=== PATIENT | female | born 1980 | race Caucasian/White ===

== ENCOUNTER 2020-04-03 18:33 | Emergency (ER) | payer SELFPAY | END 2020-04-03 19:56 | disposition left against medical advice (07) | PROVIDERS: Emergency Provider Emergency Medicine | DX: R10.9 Unspecified abdominal pain (principal); R51.9 Headache, unspecified ==

== ENCOUNTER 2023-06-09 08:34 | Outpatient (REF) | payer OTHER, SELFPAY ==
--- NOTE | ~2023-06-09 | FL_ITS ---
EXAMINATION: XR FLUOROSCOPY UPPER GI WITH AIR CLINICAL INFORMATION: Burning, reflux COMPARISON: None TECHNIQUE: Fluoroscopic air contrast upper GI examination was performed utilizing standard techniques with thin and thick barium and effervescent granules. Numerous spot images were obtained. FINDINGS: Dual and single contrast images of the esophagus demonstrate normal caliber, contour, and mucosal pattern. No evidence of stricture, mass, or ulcerations identified. There is to and fro motion of the barium column with mildly disorganized peristalsis in the mid and distal esophagus. There is mild to moderate narrowing of the GE junction they may represent achalasia or a benign stricture. A small type I hiatal hernia is present. No significant gastroesophageal reflux was seen during the course of the examination and on reflux views. Dual contrast and single contrast images of the stomach demonstrated a normal contour. Evaluation of the gastric mucosa is limited due to poor coating of the barium. No obvious mass is identified. Contrast freely passed into the gastric antrum and duodenal bulb without delay. Single and air-contrast images of the duodenal bulb demonstrate no abnormality. The duodenal sweep has a normal appearance, course, and mucosal fold appearance. The imaged proximal jejunum has a normal fold pattern and caliber. FLUOROSCOPY TIME: 4 minutes 58 seconds Number of Spot Images: 14 Number of Cine: 10 DOSE AREA PRODUCT: 4152 uGy-m2 (microgray-meter squared) FL/FL upper GI series IMPRESSION: 1. Mildly disorganized esophageal peristalsis 2. Mild to moderate narrowing of the GE junction that may represent achalasia or a benign stricture. 3. Small type I hiatal hernia 4. Evaluation of the gastric mucosa is limited due to poor coating of the barium. This procedure was performed by Tra Whaley PA-C, and supervised by Dr. Schroeder
== END 2023-06-09 08:35 | disposition home or self-care (01) ==
LOC: HO.XRAY 08:34
PROVIDERS: Visit Provider Physician Assistant
DX: R13.10 Dysphagia, unspecified (principal); K21.9 Gastro-esophageal reflux disease without esophagitis
CPT/HCPCS: 74240

== ENCOUNTER → 2023-06-09 08:36 | Outpatient (BNV) | payer OTHER, SELFPAY | PROVIDERS: Visit Provider Physician Assistant Surgical | DX: K21.9 Gastro-esophageal reflux disease without esophagitis (principal) | CPT/HCPCS: 74246 ==

== ENCOUNTER 2023-07-08 13:51 | Outpatient (AMB) | payer OTHER, SELFPAY ==
--- NOTE | 2023-07-08 14:03 | A.OFFVIS_ITS ---
Intake Vital Signs 07/08/23 14:04 Height 5 ft 6 in Weight 388 lb 0.217 oz BMI 62.6 BP 135/82 Blood Pressure Location Lt brachial Position Sitting Pulse 94 Intake Visit Reasons: possible dysphagia Intake Note: Jonelle presents in the office as a new patient for dysphagia. CC: Issues swallowing, pains in the chest. She has constipation at times but denies diarrhea. Traffic Engineering Director Required: No Allergies carbamazepine [From TEGRETOL] Allergy (Unknown, Unverified 07/08/23 14:06) UNKNOWN-CHILDHOOD ALLERGIC REACTION carbamazepine Allergy (Unknown, Uncoded 07/08/23 14:06) Unknown Medication List - Last Reconciled 07/08/23 by Maribel Christine PA-C clonidine HCl mg PO diclofenac sodium 3% 1 appl topical BID doxepin mg PO escitalopram oxalate 20 mg PO DAILY risperidone mg PO semaglutide 0.25 mg subcut QWEEK HPI HPI Comments History of Present Illness Details A 42 y/o female referred after recent upper GI series showing possible stricture. She presents with dysphagia for the past few months. 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- [employer] Review of Systems Const All systems reviewed & are unremarkable except as noted in HPI and below ENT Reports dysphagia and Denies dizziness Card Denies chest pain and Denies dyspnea Resp Denies dyspnea GI Denies abdominal pain, Denies change in bowel habits, Reports dysphagia, Reports heartburn, Denies nausea and Denies vomiting Neuro Denies dizziness Physical Exam Vital Signs: Last Vital Signs Pulse 94 07/08/23 14:04 BP 135/82 07/08/23 14:04 BMI result Body Mass Index 62.6 Const General: cooperative and no acute distress Orientation/consciousness: patient oriented x3 Limitations: no limitations Eyes Sclerae: sclerae normal Resp Effort & Inspection: normal respiratory effort and able to speak in complete sentences Auscultation: clear to auscultation bilaterally, no rales, no rhonchi and no wheezes Cardio Rate: regular rate Rhythm: regular rhythm Heart sounds: S1 normal heart sound present and S2 normal heart sound present GI Inspection: Yes normal to inspection Palpation (GI): Soft to palpation and nontender Auscultation: normal bowel sounds Neuro General: patient oriented x3 Extrem General: Yes full ROM Psych Appearance: well kempt Mental Status: mental status grossly normal Speech and movement: Normal speech and movement present and Clear speech present Affect: normal affect Attitude: cooperative Thought process: Normal thought process present Thought content: Normal thought content present Insight: Good insight present (Psych) Judgement: Good judgement present (Psych) Results Reviewed Results Reviewed: FL/FL upper GI series IMPRESSION: 1. Mildly disorganized esophageal peristalsis 2. Mild to moderate narrowing of the GE junction that may represent achalasia or a benign stricture. 3. Small type I hiatal hernia 4. Evaluation of the gastric mucosa is limited due to poor coating of the barium. Assessment & Plan Assessment & Plan (1) Dysphagia: Comment: Pleasant 42-year-old female- past few mos- UGI- poss stricture Code(s): R13.10 - Dysphagia, unspecified Plan: EGD possible dilation (2) Acid reflux: Comment: PPI, reflux precautions Code(s): K21.9 - Gastro-esophageal reflux disease without esophagitis Plan: pantoprazole Plan EGD w/ poss dil If started OZEMPIC - must stop 1 wk < pantoprazole 20 reflux precautions Medications: New docusate sodium (Colace) 200 mg (2 x 100 mg) PO BEDTIME 60 caps 5RF pantoprazole 20 mg PO QAM 30 days 30 tabs 6RF polyethylene glycol 3350 (Miralax) 17 grams PO DAILY 510 grams 6RF Patient Instructions: EGD w/ poss dil-discussed procedure, rare risks need for escort If started OZEMPIC - must stop 1 wk < discussed with patient, no major barriers to understanding were identified pantoprazole 20 reflux precautions Avoid culprits, caffeine, nicotine, chocolate, peppermint, alcohol remain upright 2-3 hours after eating especially evening meal Encouraged to establish with PCP Encouraged to call with questions or concerns Coding Level of Care Code New Pt Level 3 (23370) Diagnoses Dysphagia R13.10 Acid reflux K21.9 Time Spent (min) 30
[2023-07-08 14:04] VITALS: BP 135/82; PULSE 94; BMI 62.6
== END 2023-07-08 14:33 | disposition home or self-care (01) ==
PROVIDERS: Visit Provider Physician Assistant
DX: R13.10 Dysphagia, unspecified (principal); K21.9 Gastro-esophageal reflux disease without esophagitis
CPT/HCPCS: 99203

== ENCOUNTER → 2023-07-08 13:51 | Outpatient (BNVA) | payer OTHER, SELFPAY | PROVIDERS: Visit Provider Physician Assistant | DX: R13.10 Dysphagia, unspecified (principal); K21.9 Gastro-esophageal reflux disease without esophagitis | CPT/HCPCS: 99202 ==

== ENCOUNTER 2023-07-16 12:54 | Day surgery (SDC) | payer OTHER, SELFPAY ==
--- OUTSIDE RECORDS SUMMARY | 2023-07-16 12:57 | XMS_ITS | Continuity of Care Document ---
Author Organization [facility] ter Address [address] [place] [address]- Care Team Providers Care Computer Technology Instructor Name Role Phone Not on Staff, PCP Primary Care Physician Unavail able [place] [facility] [place] - 11/19/[address] [address]- Discharge Disposition: A-D/C Home Attending Physician: Hernan De Los Santos DO Admitting Physician: Hernan De Los Santos DO Referring Physician: Not on Staff, Referring MD Allergies, Adverse Reactions, Alerts Substance Reaction Severity Status Tegretol [D]Dizziness and giddiness Moderate A ctive Immunizations Given and Recorded Vaccine Date Status Refusal Reason tetanus/diphtheria/pertussis, acel(Tdap) 1 01/19/17 Given influenza virus vaccine, inactivated 2 01/19/17 [facility] influenza virus vaccine, inactivated 3 11/12/11 [facility] diphtheria-tetanus toxoids (DT) 4 02/22/07 Given 1Admin Note: Declined 2Admin Note: Declined 3Admin Note: given at [facility] 4Admin Note: Dog bite, - [facility] Medications cloNIDine 0.1 mg oral tablet 0.1 mg, 1, tablet, By Mouth, Daily at bedtime, # 30 tablet, Refills 0, Tot. Refills 0, Maintenance,01/19/17 15:22:43, Do Not Route Start Date: 01/19/17 Stop Date: 02/18/17 Status: Ordered SEROquel 100 mg oral tablet 150 mg, 1.5, tablet, By Mouth, Daily at bedtime, # 45 tablet, Refills 0, Tot. Refills 0, Maintenance, 01/19/17 15:21:50, Do Not Route Start Date: 01/19/17 Stop Date: 02/18/17 Status: Ordered Vivitrol 380 mg intramuscular injection, extended release = 380 mg, Intramuscular, Every 28 days, # 1 each, 0 Refills, Maintenance, 01/19/17 15:23:14 Start Date: 01/19/17 Stop Date: 02/16/17 Status: Ordered Problem List Condition Effective Dates Status Health Status Inform ant Chronic bipolar disorder(Confirmed) 06/29/12 Active Dyspepsia(Confirmed) Active H/O: substance abuse(Confirmed) 1 Active History of seizure disorder( Confirmed) 2 Active Obesity NOS(Confirmed) Active 1past hx of snorting heroin, 2no seizure activity in over 20 years per pt Results Radiology Reports * Exam Date Time Procedure Performing Provider Status 11/18/20 10:38 PM Chest 2 Views Frontal and Lat Shital Barroso; Auth (Verified) Notes: (Chest 2 Views Frontal and Lat) Reason For Exam: Chest Pain;Other: RESULT: Chest 2 Views Frontal and Lat Chest 2 Views Frontal and Lat Hx of Present Illness: Pt sts she got up to get up from the couch to get something for her son to drink and suddenly felt very dizzy. The next thing she remembers is waking up to her son standing over her. He sts she was screaming. Previous episodes in childhood.; Reason: Other:; Chest Pain; Clinical Question(s): Other: COMPARISON: 04/27/2004. FINDINGS: LINES AND TUBES: None. LUNGS AND PLEURA: Clear lungs. A nodular density projecting over the right lower lung field on AP view corresponds toa prominent costochondral calcification seen on the lateral view. Normal pulmonary vascularity. No pleural effusion. No pneumothorax. HEART, MEDIASTINUM AND PASTORA: Heart is normal in size. Normal upper mediastinal and hilar contour. BONES AND SOFT TISSUES: No acute abnormality. IMPRESSION: No acute abnormality. WSN: [id number] Ordering Physician: Kal Ochoa Dictated By: James Goldman MD Dictated Date/Time: 11/18/20 10:42 p Reviewed By: James Goldman MD Signed By: James Goldman MD Signed Date/Time: 11/18/20 10:42 pm Transcribed By: TODD Transcribed Date/Time: 11/18/20 10:41 pm Vital Signs Most recent to oldest [Reference Range]: 1 2 3 Oxygen Saturation [94-100 %] 100 % (11/19/20 5:29 PM) 100 % (11/19/20 3:51 PM) 100 % (11/19/20 11:35 AM) Pulse Rate [55-90 bpm] 82 bpm (11/19/20 5:29 PM) 76 bpm (11/19/20 3:51 PM) 83 bpm (11/19/20 11:35 AM) Blood Pressure [90-138/55-84 mm Hg] 135/70mm Hg (11/19/20 5:29 PM) 136/80mm Hg (11/19/20 3:51 PM) 132/72mm Hg (11/19/20 11:35 AM) Respiratory Rate [16-30 br/min] 19 br/min (11/19/20 5:29 PM) 16 br/min (11/19/20 3:51 PM) 19 br/min (11/19/20 11:35 AM) Temperature [96.8-100.4 DegF] 97.6 DegF (11/19/20 5:29 PM) 97.8 DegF (11/19/20 11:35 AM) 97.7 DegF (11/19/20 10:09 AM) Mode of Delivery (Oxygen) Room air (11/19/20 5:29 PM) Room air (11/19/20 3:51 PM) Room air (11/19/20 11:35 AM) Blood pressure sites Arm, right (11/19/20 5:29 PM) Arm, right (11/19/20 3:51 PM) Arm, right (11/19/20 11:35 AM) Temperature Route Oral (11/19/20 5:29 PM) Oral (11/19/20 11:35 AM) Oral (11/19/20 10:09 AM) Weight Obtained Via UTO (11/18/20 10:04 PM) Dry Weight Obtained Via UTO (11/18/20 10:04 PM)
--- OUTSIDE RECORDS SUMMARY | 2023-07-16 12:57 | XMS_ITS | Continuity of Care Document ---
Author Organization [facility] Address [address] [place] [address]- Care Team Providers Care Drawing Frame Tender Name Role Phone Rashi GRIMALDO, Caroline Guzman Primary Care Physician Encounter [facility] [place] Date(s): 04/21/19 - 05/21/19 [facility] [address] [place] [id number]- [facility] Attending Physician: Not on Staff, Attending MD Allergies, Adverse Reactions, Alerts Substance Reaction [...]
--- OUTSIDE RECORDS SUMMARY | 2023-07-16 12:57 | XMS_ITS | Continuity of Care Document ---
Author Organization [facility] Address [address] [place] [address]- Care Team Providers Care Supervisor Motor Vehicle Assembly Name Role Phone Rashi GRIMALDO, Caroline Guzman Primary Care Physician [place] [facility] [place]s): 04/21/19 - 05/01/19 [facility] [address] [place] [id number]- [facility] Attending Physician: Admtr, Ar8 Allergies, Adverse Reactions, Alerts Substance Reaction Severity [...]
[2023-07-16 13:27] VITALS: BP 107/60; PULSE 71; RESP 20; TEMP 36.1; O2SAT 98; BMI 60.1
[2023-07-16 13:34] LABS: UPreg QC Valid YES; Urine Pregnancy NEGATIVE (NEGATIVE)
--- NOTE | 2023-07-16 13:40 | MHC.SHP ---
Pre-Procedural Eval Section A - 24 Hr Update-Section A only Date of Service: 07/16/23 The patient is an INPATIENT: No The patient has been examined within 24 hours of the surgical procedure. The History & Physical has been completed within 30 days and I have reviewed it.: Yes Section B - Complete if H&P > 30 days Chief Complaint: GERD, dysphagia Allergies: Allergies Allergy/AdvReac Type Severity Reaction Status Date / Time carbamazepine [From TEGRETOL] Allergy Unknown UNKNOWN-CHILDHOOD Unverified 07/08/23 14:06 ALLERGIC REACTION carbamazepine Allergy Unknown Unknown Uncoded 07/08/23 14:06 Review of Systems Sugical H&P ROS: Negative: Cardiovascular Exam Surgical H&P Exam: Normal: Heart, Normal: Lungs, Normal: Extremities and Normal: Abdomen Plan Diagnosis/Plan: Change (EGD to be performed with GA in the OR) I have reviewed the history and physical and performed a pertinent physical examination on my patient. No changes have occurred unless specified. Time Spent With Patient Time: Total time managing care of this patient today ____ minutes.
--- NOTE | 2023-07-16 13:47 | HO.ANESPROP2 ---
HPI - Anesthesia Eval Consult details Narrative: morbidly obese pt for upper endo with dilatation PMFSH Active Problems Active Problems: All Active Problems Acid reflux (Acute) Dysphagia (Acute) Family History Family history of problems with anesthesia: No Surgical History History of Problems with Anesthesia: No Social History Social History Household Members: Children Alcohol intake: former Patient Tobacco Use Status: Former Tobacco user Use of substances other than those prescribed or required for medical reasons: No Are you DNR?: No Advance Directives: No Advance Directives Information Provided: Yes Current occupational status: employed 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- [employer] Meds Allergies Allergy/AdvReac Type Severity Reaction Status Date / Time carbamazepine [From TEGRETOL] Allergy Unknown UNKNOWN-CHILDHOOD Unverified 07/08/23 14:06 ALLERGIC REACTION carbamazepine Allergy Unknown Unknown Uncoded 07/08/23 14:06 Active Medications: Current Medications Lactated Ringer's (Lr) 1,000 mls @ 50 mls/hr IVCONT .Q20H LASHAE Home Medications ?Medication ?Instructions ?Recorded ?Confirmed ?Last Taken ?Type clonidine HCl 0.2 mg tablet mg PO 07/08/23 Unknown History diclofenac sodium 3 % topical gel 1 appl topical BID 07/08/23 Unknown History doxepin 100 mg capsule mg PO 07/08/23 Unknown History escitalopram oxalate 20 mg tablet 20 mg PO DAILY 07/08/23 Unknown History risperidone 0.5 mg tablet mg PO 07/08/23 Unknown History semaglutide 0.25 mg or 0.5 mg (2 0.25 mg subcut QWEEK 07/08/23 Unknown History mg/3 mL) subcutaneous pen injector Exam Height,Weight and Vital Signs: Height 5 ft 7 in Weight 174.179 kg Last Vital Signs Temp 96.9 F 07/16/23 13:27 Pulse 71 07/16/23 13:27 Resp 20 07/16/23 13:27 BP 107/60 07/16/23 13:27 Pulse Ox 98 07/16/23 13:27 O2 Del Method Room Air 07/16/23 13:27 Pertinent Lab Results Pertinent Lab Results: Laboratory Tests 07/16/23 13:15 Urine Test NEGATIVE Airway Heart: rrr Lungs: cta Assessment and Plan Assessment Anesthesia Assessment: Anesthesia Plan Discussed and Chart Reviewed Final Anesthetic Review Family History of Problems with Anesthesia: No History of Problems with Anesthesia: No NPO: Yes ASA Class: III Final Preanesthetic Review: No Changes in Pt Med Stat, Meds/Allgs Chart Reviewed, Consent Obtained/Reviewed and Anes Risks/Benef Reviewed Patient Risk: High Procedure Risk: Intermediate Anesthetic Plan Anesthetic Plan: GA Disposition: Standard PACU
--- NOTE | 2023-07-16 14:17 | PC.NURSE ---
delay for difficult iv start x [address] shine unable at 1330 to assist. 4th rn with iv access obtained. team notified at [phone]
[2023-07-16 14:19] VITALS: BP 107/60; PULSE 71; RESP 18; TEMP 36.1; O2SAT 98
[2023-07-16 15:11] VITALS: BP 139/80; PULSE 89; RESP 16; TEMP 37.2; O2SAT 100
--- NOTE | 2023-07-16 15:12 | W.PM.OPN ---
Operative Note Operative Note Date of Service: 07/16/23 Narrative: FLEXIBLE TRANSORAL UPPER GASTROINTESTINAL ENDOSCOPY WITH BIOPSIES AND ESOPHAGEAL BALLOON DILATION Pre-op diagnosis: GERD, Dysphagia] Post-op diagnosis: GERD, dysphagia, Gastritis, Endoscopist:? Martin Salazar MD Anesthesia:?MAC UPPER ENDOSCOPY Consent: Indications for the procedure and potential complications of bleeding, perforation, reaction to medications and missed diagnosis were discussed with the patient and informed consent was obtained. Instrument: Olympus GIF H 190 mid size upper endoscope Monitoring: Vital signs and clinical assessment, continuous EKG monitoring, Pulse oximetry, Carbon Dioxide monitoring and blood pressure monitoring were done throughout the procedure. Procedure: The patient was placed in the left lateral decubitis position and pre-procedure medications were administered and a bite block was placed. The endoscope was inserted into the mouth and advanced under direct vision to the third part of duodenum. A careful inspection was made as the upper endoscope was withdrawn including a retroflexed examination of the proximal stomach; Findings and interventions are described below. Findings: Larynx: Normal Esophagus: GE junction at 40 cms. No esophagitis or Ku's. Mildly tortuous esophagus without stricture or ring. A mid-size upper endoscope was passed into the stomach without resistance. Empiric balloon dilation was performed with a 20 mm (60 F) CRE balloon x 60 seconds Stomach: Moderate gastric erythema - biopsies were obtained from the antrum to check for Helicobacter pylori. Grade 2 flap valve on retroflexed examination of the cardia. Duodenum: Normal bulb and descending duodenum Intervention: Biopsies and esophageal balloon dilation as noted above Impression and Post Procedure Diagnosis: Endoscopy Findings: ESOPHAGUS: GE junction at 40 cms. No esophagitis or Ku's. Mildly tortuous esophagus without stricture or ring. A mid-size upper endoscope was passed into the stomach without resistance. Empiric balloon dilation was performed with a 20 mm (60 F) CRE balloon x 60 seconds STOMACH: Moderate gastritis Dysphagia likely due to achalasia as suspected on Barium swallow Plan: Pt has a FU appointment on 08/09/23 with JUSTINE Hill. Referral to [facility] or [facility] for esophageal manometry Above findings were reviewed with the patient.
[2023-07-16 15:26] VITALS: BP 159/54; PULSE 77; RESP 18; O2SAT 98
[2023-07-16 15:41] VITALS: BP 133/64; PULSE 69; RESP 18; TEMP 36.1; O2SAT 96
[2023-07-16] MEDS: ondansetron HCL 4 MG/2 ML VIAL IVPUSH (15:50)
== END 2023-07-16 16:06 | disposition home or self-care (01) ==
PROVIDERS: Anesthesiology; Visit Provider Internal Medicine Gastroenterology
PROC: 0DJ08ZZ Inspection of Upper Intestinal Tract, Via Natural or Artificial Opening Endoscopic (ICD-10-PCS; CPT 43235; principal; 2023-07-16 14:10)
DX: R13.10 Dysphagia, unspecified (principal); K21.9 Gastro-esophageal reflux disease without esophagitis; K22.89 Other specified disease of esophagus; K29.50 Unspecified chronic gastritis without bleeding; K44.9 Diaphragmatic hernia without obstruction or gangrene; E66.01 Morbid (severe) obesity due to excess calories; Z68.44 Body mass index [BMI] 60.0-69.9, adult; Z79.85 Long-term (current) use of injectable non-insulin antidiabetic drugs; Z79.899 Other long term (current) drug therapy; Z88.8 Allergy status to other drugs, medicaments and biological substances; Z87.891 Personal history of nicotine dependence
CPT/HCPCS: 43249; 43239; 81025; 88305; 88313; 88342; C1726; J2250; J2405; J2704

== ENCOUNTER → 2023-07-16 12:54 | Outpatient (BNV) | payer OTHER, SELFPAY | PROVIDERS: Visit Provider Internal Medicine Gastroenterology | DX: K21.9 Gastro-esophageal reflux disease without esophagitis (principal); R13.10 Dysphagia, unspecified; K29.70 Gastritis, unspecified, without bleeding | CPT/HCPCS: 43239; 43249 ==

== ENCOUNTER 2023-08-09 14:39 | Outpatient (AMB) | payer OTHER, SELFPAY ==
--- NOTE | 2023-08-09 14:42 | A.OFFVIS_ITS ---
Vital Signs 08/09/23 14:54 Height 5 ft 7 in Weight 366 lb BMI 57.3 BP 136/76 Blood Pressure Location Lt brachial Position Sitting Pulse 84 Intake Visit Reasons: S/P EGD with possible dilation Intake Note: Patient follow up for EGD Patient denies any GI issues. 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 Required: No Accompanied by: Self / Same As Patient Allergies carbamazepine [From TEGRETOL] Allergy (Unknown, Verified 08/09/23 14:42) UNKNOWN-CHILDHOOD ALLERGIC REACTION carbamazepine Allergy (Unknown, Uncoded 07/08/23 14:06) Unknown HPI Comments Details: A 42 y/o female seen urgently for dysphagia-sent for EGD- RTC for results- she has dysphagia- nothing specific- liquids and solids- occ reflux- Balloon dilation Reviewed procedure report/ path and rec- Has appt at [facility]-- for manometry-a in about 1 month She has no other GI or general, complaint Just returned from vacation [facility] Surgical History History of esophagogastroduodenoscopy (EGD) Social History Household Members: Children Alcohol intake: former Patient Tobacco Use Status: Former Tobacco user Current occupational status: employed 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- [employer] Review of Systems Const All systems reviewed & are unremarkable except as noted in HPI and below ENT Reports dysphagia (Intermittent) GI Denies abdominal pain, Reports dysphagia (Intermittent), Denies heartburn, Denies nausea and Denies vomiting Physical Exam Vital Signs: Last Vital Signs Pulse 84 08/09/23 14:54 BP 136/76 08/09/23 14:54 BMI result Body Mass Index 57.3 Const General: cooperative, comfortable and no acute distress Orientation/consciousness: patient oriented x3 Limitations: no limitations Neuro General: patient oriented x3 Psych Appearance: grossly normal and well kempt Speech and movement: Normal speech and movement present and Clear speech present Affect: normal affect Attitude: cooperative Thought process: Normal thought process present Thought content: Normal thought content present Insight: Good insight present (Psych) Judgement: Good judgement present (Psych) Results Reviewed Results Reviewed: mpression and Post Procedure Diagnosis: Endoscopy Findings: ESOPHAGUS: GE junction at 40 cms. No esophagitis or Ku's. Mildly tortuous esophagus without stricture or ring. A mid-size upper endoscope was passed into the stomach without resistance. Empiric balloon dilation was performed with a 20 mm (60 F) CRE balloon x 60 seconds STOMACH: Moderate gastritis Dysphagia likely due to achalasia as suspected on Barium swallow Plan: Pt has a FU appointment on 08/09/23 with JUSTINE Hill. Referral to [facility] or [facility] for esophageal manometry Above findings were reviewed with the patient. Name: Jonelle Tamayo Age/Sex: 42/F Attending: Martin Salazar MD : 1980 Submitted by: Martin Salazar MD Copies to: MR #: [id number] Status: [facility] Collected: 07/16/23 Location: [facility] Received: 07/19/23 Diagnosis Stomach, antrum, biopsy: Antral-type mucosa with mild chronic inactive inflammation; no Helicobacter organisms seen. Clinical History Pre-Op Dx: GERD, dysphagia Post-Op Dx: Dysphagia, GERD, gastritis Microscopic Description Microscopic sections examined. No metaplastic changes are seen, supported by AB/PAS stains; no Helicobacter organisms are seen, supported by H. pylori immunostain Material Received Gastric antrum bx Gross Description Received in formalin labeled ?gastric antrum bx? are 2 bautista irregular tissue fragments measuring 0.15 and 0.35 cm, submitted in toto in a cassette labeled A. CEDS Special studies ordered and performed: Immunostain for H. pylori; AB/PAS stains NOTE: Unless otherwise stated, all tissue is formalin-fixed and paraffin- embedded. Some or all of the immunohistochemical tests reported herein may have been developed and their performance characteristics determined by [facility]. They have not been cleared or approved by the U.S. Food and Drug Administration (FDA). However, the FDA has determined that such clearance or approval is not necessary. This laboratory is certified under the Clinical Laboratory Improvement Amendments of 1988 (CLIA) as qualified to perform high complexity clinical laboratory testing. Electronically Signed By: Devin Fallon MD 07/20/23 5565 Patient: Jonelle Tamayo Age/[facility]: 42[id number] MR#: [id number] Page 1 of 1 Assessment & Plan Assessment & Plan (1) Dysphagia: Comment: Flori 42-year-old female- past few mos- UGI- poss stricture-followed by EGD Discussed procedure, pathology and recommended Code(s): R13.10 - Dysphagia, unspecified Category: Medical Plan: Scheduled for manometry at [facility] Plan Fax- EGD? path- to [phone] Patient Instructions: Flori 42-year-old female dysphagia, intermittent follows up after recent EGD Reviewed procedure report recommendations patient already scheduled to be seen by EMS for manometry She will continue to eat slowly chew her food well Encouraged to call questions or concerns Records will be faxed to [facility] Coding Level of Care Code Est Pt Level 3 (42486) Diagnoses Dysphagia R13.10 Time Spent (min) 20
[2023-08-09 14:54] VITALS: BP 136/76; PULSE 84; BMI 57.3
== END 2023-08-09 15:17 | disposition home or self-care (01) ==
PROVIDERS: Visit Provider Physician Assistant
DX: R13.10 Dysphagia, unspecified (principal)
CPT/HCPCS: 99213

== ENCOUNTER → 2023-08-09 14:39 | Outpatient (BNVA) | payer BC, SELFPAY | PROVIDERS: Visit Provider Physician Assistant ==